=== PATIENT | male | born 1965 | race Hispanic/Latino ===

== ENCOUNTER 2018-09-15 09:26 | Day surgery (SDC) | payer OTHER ==
[2018-09-15] MEDS ORDERED: Lactated Ringer's 500 ML IV ONE (09:38)
[2018-09-15 09:45] VITALS: BMI 27.8
[2018-09-15 09:55] VITALS: O2SAT 100
[2018-09-15] MEDS ORDERED: Propofol 10 mg/ml Inj (20 ML) ONE (10:00)
[2018-09-15 11:40] VITALS: BP 124/76; PULSE 70; RESP 20; TEMP 97.3
== END 2018-09-15 12:30 | disposition home or self-care (01) ==
LOC: H.ENDO 09:26
PROVIDERS: ATTEND Internal Medicine Gastroenterology
DX: Z12.11 Encounter for screening for malignant neoplasm of colon (principal); K64.8 Other hemorrhoids; K57.30 Diverticulosis of large intestine without perforation or abscess without bleeding
CPT/HCPCS: 45378; J2001; J2704; J7120